=== PATIENT | male | born 1960 | race Caucasian/White ===

== ENCOUNTER 2017-05-10 09:18 | Day surgery (SDC) | payer MEDICARE ==
[~2017-05-10 09:18] MED LIST: ASPI-1197 PEG; CETI10TA57 PO; FAMO20TA8 PEG; PRAV40TA3 PEG; QUET50TA55 PEG; RIVA20TA PEG; SODIUM CHLORIDE 0.9% 1000ML 1,000 ML IV ONE; TRAZ-147 PEG
[2017-05-10 10:00] VITALS: BP 114/82
[2017-05-10] MEDS ORDERED: PROPOFOL 10 MG/ML 20ML VIAL IV ONE (11:49)
[2017-05-10 12:05] VITALS: BP 97/63
== END 2017-05-10 13:14 | disposition home or self-care (01) ==
LOC: ENDO 09:18 → DAH 09:18 → ENDO 13:14
PROVIDERS: ATTEND Internal Medicine Gastroenterology
DX: K94.23 Gastrostomy malfunction (principal); K21.9 Gastro-esophageal reflux disease without esophagitis; I10 Essential (primary) hypertension; E78.5 Hyperlipidemia, unspecified; J44.9 Chronic obstructive pulmonary disease, unspecified; Z86.73 Personal history of transient ischemic attack (TIA), and cerebral infarction without residual deficits; G40.909 Epilepsy, unspecified, not intractable, without status epilepticus; F32.9 Major depressive disorder, single episode, unspecified; Z68.36 Body mass index [BMI] 36.0-36.9, adult; Z79.899 Other long term (current) drug therapy
CPT/HCPCS: 43246; 93005; A4606; J2704; J7030

== ENCOUNTER → 2018-01-23 | Outpatient (CLI) | payer MEDICARE ==
[~2018-01-23] MED LIST changes: -SODIUM CHLORIDE 0.9% 1000ML 1,000 ML IV ONE; -TRAZ-147 PEG; +TRAZ-187 PEG
== END | disposition home or self-care (01) ==
LOC: OIH 10:29
PROVIDERS: ATTEND Internal Medicine
DX: R05 Cough (principal); R07.9 Chest pain, unspecified; Z87.19 Personal history of other diseases of the digestive system
CPT/HCPCS: 71046

== ENCOUNTER 2019-03-05 08:57 | Observation (INO) | payer MEDICARE ==
[~2019-03-05] VITALS: Ht 175.3 cm; Wt 64.9 kg
[2019-03-05] MEDS ORDERED: IPRATROPIUM/ALBUTEROL SULFATE 3 ML SOLUTION IH ONE (09:29)
[2019-03-05 09:48] LABS: ABG BASE EXCESS 0.4 mmol/L (-2.0-3.0); ABG HCO3 24.2 mmol/L (21.0-28.0); ABG OXYGEN SATURATION 93.2 % (95.0-99.0); ABG PCO2 36 mmHg (35-48)
[2019-03-05] MEDS ORDERED: METHYLPREDNISOLONE SOD SUCC 125MG/2ML VIAL ONE (10:02)
[2019-03-05 10:07] LABS: BASOPHILS % (AUTO) 0.4 % (0.0-5.0); EOSINOPHILS % (AUTO) 0.6 % (0.0-8.0); LYMPHOCYTES % (AUTO) 12.9 % (21.0-51.0); MEAN CORPUSCULAR HEMOGLOBIN 29.1 pg (27.0-33.0); MEAN CORPUSCULAR HGB CONC 32.3 g/dL (32.0-36.0); MONOCYTES % (AUTO) 13.3 % (3.0-13.0); NEUTROPHILS % (AUTO) 72.6 % (40.0-77.0); PLATELET COUNT (AUTO) 149 K/uL (130-400); RED CELL DISTRIBUTION WIDTH 13.1 % (11.0-15.5); WHITE BLOOD COUNT (AUTO) 5.1 K/uL (4.8-10.8)
[2019-03-05 10:15] LABS: HEMATOCRIT 46.9 % (42-54); RED BLOOD CELL COUNT(AUTO) 5.22 MIL/uL (4.50-6.20)
[2019-03-05 10:21] LABS: POTASSIUM 3.5 mmol/L (3.5-5.1)
[2019-03-05 10:26] LABS: ALBUMIN 3.5 g/dL (3.5-5.0); BILIRUBIN,TOTAL 0.5 mg/dL (0.2-1.0); TOTAL PROTEIN, SERUM 7.5 g/dL (6.0-8.3)
[2019-03-05] MEDS ORDERED: ZOSYN 3.375GM+NS 50ML 50 ML IV ONE (10:31)
[2019-03-05 10:39] LABS: INR 1.29 (0.85-1.15); PARTIAL THROMBOPLASTIN TIME 39.2 SEC (26.3-35.5); PROTHROMBIN TIME 13.4 SEC (9.6-11.6)
[2019-03-05 10:52] LABS: B-TYPE NATRIURETIC PEPTIDE 9 pg/mL (0-100)
[2019-03-05] MEDS ORDERED: IOHEXOL-350 75 ML VIAL IV ONE ×2 (12:09→12:19)
[2019-03-05] MEDS: CEFTRIAXONE SODIUM 1 GM IVP SCH (13:14)
[2019-03-05] MEDS ORDERED: SODIUM CHLORIDE 0.9% 10 ML VIAL IVP SCH (13:15)
[2019-03-05] MEDS: AZITHROMYCIN 500MG+NS 250ML 250 ML IV SCH (13:15)
[2019-03-05] MEDS ORDERED: IPRATROPIUM/ALBUTEROL SULFATE 3 ML SOLUTION IH PRN (13:15)
[2019-03-05] MEDS ORDERED: ACETAMINOPHEN 325 MG TAB PO PRN ×2 (13:15)
[2019-03-05] MEDS ORDERED: ENOXAPARIN SODIUM 40 MG/0.4 ML SYRINGE SQ SCH (13:15)
[2019-03-05] MEDS ORDERED: AZITHROMYCIN 500MG+NS 250ML 250 ML IV ONE (14:57)
[2019-03-05] MEDS ORDERED: ENOXAPARIN SODIUM 40 MG/0.4 ML SYRINGE SQ ONE (14:57)
[2019-03-05] MEDS ORDERED: CEFTRIAXONE SODIUM 1 GM ONE (14:58)
--- NOTE | 2019-03-05 15:39 | NUR ---
ER ADMIT PATIENT RECEIVED FROM ER VIA STRETCHER IN STABLE CONDITION. FAMILY IS PRESENT IN ROOM. BOTH WERE ORIENTED TO ROOM AND USE OF CALL LIGHT. PATIENT IS AWAKE AND ALERT BUT IS UNABLE TO COMMUNICATE VERBALLY D/T A STROKE. IV IS PATENT WITH NO REDNESS OR SWELLING NOTED TO SITE. WILL CONTINUE TO MONITOR.
[2019-03-05 16:00] VITALS: BP 114/73
[2019-03-05] MEDS: IPRATROPIUM/ALBUTEROL SULFATE 3 ML SOLUTION IH SCH ×2 (19:08→23:29)
[2019-03-05 20:00] VITALS: BP 104/67
--- NOTE | 2019-03-05 21:00 | NUR ---
ASSESS SHIFT ASSESSMENT DONE, PLEASE REFER TO CHART. PT'S SPOUSE VERBALIZE THAT SHE HAD ALREADY GIVEN PT HIS FEEDING FOR THE NIGHT AND HIS NIGHT MEDS FROM HOME. KEPT RESTED AND COMFORTABLE, WITH HOB ELEVATED. CALL LIGHT WITHIN REACH. SPOUSE AT BEDSIDE. Addendum: 03/05/19 at 2137 by KILLIAN GALE RN RN Amended: Links added.
[2019-03-06] VITALS: BP 96/66
--- NOTE | 2019-03-06 01:54 | NUR ---
BATHE PCP IN TO GIVE PT A BED BATH. TOLERATING ACTIVITY WELL.
[2019-03-06 03:59] VITALS: BP 95/65
[2019-03-06 05:09] LABS: BASOPHILS % (AUTO) 0.1 % (0.0-5.0); EOSINOPHILS % (AUTO) 1.7 % (0.0-8.0); HEMATOCRIT 41.8 % (42-54); LYMPHOCYTES % (AUTO) 9.2 % (21.0-51.0); MEAN CORPUSCULAR HGB CONC 31.8 g/dL (32.0-36.0); MEAN CORPUSCULAR VOLUME 91.3 fL (79-99); MONOCYTES % (AUTO) 9.3 % (3.0-13.0); NEUTROPHILS % (AUTO) 79.6 % (40.0-77.0); PLATELET COUNT (AUTO) 147 K/uL (130-400); RED BLOOD CELL COUNT(AUTO) 4.58 MIL/uL (4.50-6.20); RED CELL DISTRIBUTION WIDTH 12.8 % (11.0-15.5)
[2019-03-06 05:49] LABS: ALBUMIN 2.9 g/dL (3.5-5.0); BILIRUBIN,TOTAL 0.3 mg/dL (0.2-1.0); CREATININE 1.1 mg/dL (0.5-1.5); POTASSIUM 3.9 mmol/L (3.5-5.1); TOTAL PROTEIN, SERUM 6.9 g/dL (6.0-8.3)
--- NOTE | 2019-03-06 06:45 | NUR ---
MD DR CHATMAN IN TO SEE PT. NEW ORDERS GIVEN, PLEASE REFER TO CPOE. FOR MORE CARE.
[2019-03-06] MEDS: IPRATROPIUM/ALBUTEROL SULFATE 3 ML SOLUTION IH SCH ×4 (06:49→23:48)
[2019-03-06 08:00] VITALS: BP 91/59
[2019-03-06] MEDS: CEFTRIAXONE SODIUM 1 GM IVP SCH (10:02)
[2019-03-06] MEDS: RIVAROXABAN 20 MG TABLET PEG SCH (10:02)
[2019-03-06] MEDS: FAMOTIDINE 20MG TAB 20 MG TAB PEG SCH ×2 (10:02→21:04)
[2019-03-06] MEDS: ASPIRIN 81MG TAB.CHEW PEG SCH (10:02)
[2019-03-06] MEDS: CETIRIZINE HCL 5 MG TABLET PO SCH (10:03)
[2019-03-06 11:32] VITALS: BP 85/63
[2019-03-06] MEDS: AZITHROMYCIN 500MG+NS 250ML 250 ML IV SCH (13:09)
--- NOTE | 2019-03-06 15:10 | NUR ---
RD Notification - Tube Feeding Notification Pt receiving Home Tube feedings, Jammie MENENDEZ, 4 cans per day. Current feedings do not meet nutritional energy requirements Recommend to increase Bolus feedings to 6 cans per day to provide nutritional energy and protein needs (1800kcals/80gm protein/1230mls free H2O). Recommended flushes: 60mls before and after each feeding (360mls). Possible feeding schedule: 0600 - 2 cans, 1200 - 2 cans, 1800 - 2 cans. Pt admitted for COPD Exacerbation, Hx of Craniotomym Bilateral carotid stents, PEG, Stroke, HTN. Pt monitored labs: BUN 19, BG 165, Alb 2.9. RD to continue to monitor. Please notify RD as additional nutrition concerns arise. Thank you. Addendum: 03/06/19 at [address] RD Amended: Links added.
[2019-03-06 16:00] VITALS: BP 85/60
--- NOTE | 2019-03-06 19:59 | NUR ---
BLOOD PRESSURE Dr. Taylor was made aware of patient's blood pressures; he is aware MAP is 70. Stated no new orders for now except for IV solumedrol.
[2019-03-06 20:00] VITALS: BP 99/64
[2019-03-06] MEDS ORDERED: QUETIAPINE FUMARATE 25 MG TAB PO SCH (21:00)
[2019-03-06] MEDS ORDERED: TRAZODONE HCL 100 MG TABLET PEG SCH (21:00)
[2019-03-06] MEDS ORDERED: SIMVASTATIN 20 MG TABLET PO SCH (21:00)
[2019-03-06] MEDS: METHYLPREDNISOLONE SOD SUCC 125MG/2ML VIAL IVP SCH (21:03)
--- NOTE | 2019-03-06 21:05 | NUR ---
MEDS SHIFT ASSESSMENT DONE, PLEASE REFER TO CHART. DUE MEDS ADMINISTERED VIA PEG TUBE, TOLERATED WELL. PT'S SPOUSE ALREADY HAD GIVEN FEEDING WITH WATER FLUSHES. KEPT PT'S HOB ELEVATED. PT'S SPOUSE AT BEDSIDE. WILL MONITOR PT. Addendum: 03/06/19 at 2356 by KILLIAN GALE RN RN Amended: Links added.
[2019-03-07] VITALS: BP 93/65
--- NOTE | 2019-03-07 02:00 | NUR ---
ROUNDS PT RESTING WELL, FAIRLY ASLEEP WITH RESPIRATIONS EVEN AND UNLABORED. NO NOTED DISTRESS. KEPT UNDISTURBED FOR NOW. FAMILY ASLEEP AT BEDSIDE.
[2019-03-07 04:00] VITALS: BP 95/60
--- NOTE | 2019-03-07 06:38 | NUR ---
MD DR CHATMAN IN TO MAKE ROUNDS. D/C ORDERS GIVEN. ENDORSED TO ELTON SERRATO NURSE.
[2019-03-07] MEDS: IPRATROPIUM/ALBUTEROL SULFATE 3 ML SOLUTION IH SCH (06:45)
[2019-03-07 08:00] VITALS: BP 108/80
[2019-03-07] MEDS: CEFTRIAXONE SODIUM 1 GM IVP SCH (08:50)
[2019-03-07] MEDS: RIVAROXABAN 20 MG TABLET PEG SCH (08:51)
[2019-03-07] MEDS: CETIRIZINE HCL 5 MG TABLET PO SCH (08:51)
[2019-03-07] MEDS: ASPIRIN 81MG TAB.CHEW PEG SCH (08:51)
[2019-03-07] MEDS: METHYLPREDNISOLONE SOD SUCC 125MG/2ML VIAL IVP SCH (08:51)
[2019-03-07] MEDS: FAMOTIDINE 20MG TAB 20 MG TAB PEG SCH (08:51)
--- NOTE | 2019-03-07 09:50 | NUR ---
INSTRUCTIONS DISCHARGE INSTRUCTIONS GIVEN TO PATIENT AND SPOUSE USING TEACH BACK. NEW PRESCRIPTIONS HANDED TO SPOUSE. ALL PRINTED INFORMATION AND MD INSTRUCTIONS PLACED IN DISCHARGE PACKET. IV REMOVED WITH TIP INTACT. DIRECT PRESSURE APPLIED UNTIL BLEEDING CONTROLLED THEN SITE COVERED WITH GAUZE AND SECURED WITH TAPE. NO QUESTIONS OR CONCERNS VOICED. PENDING CASE MANAGEMENT FOR EMS TRANSPORT.
--- NOTE | 2019-03-07 10:24 | NUR ---
CM Note: EMS arranged and faxed CM faxed and arranged EMS transport for pt to home, primary nurse to call [facility]. Primary nurse aware. CM to cont to follow up.
== END 2019-03-07 12:05 | disposition home or self-care (01) ==
LOC: EDH 08:57 → EDHIP 11:53 → 3AH 15:39
PROVIDERS: ADMIT Internal Medicine; ATTEND Internal Medicine
DX: J44.1 Chronic obstructive pulmonary disease with (acute) exacerbation (principal); I69.359 Hemiplegia and hemiparesis following cerebral infarction affecting unspecified side; R47.01 Aphasia; R13.10 Dysphagia, unspecified; Z93.1 Gastrostomy status; Z99.3 Dependence on wheelchair; Z79.899 Other long term (current) drug therapy
CPT/HCPCS: 36415; 36600; 71045; 71275; 80053; 82550; 82803; 83880; 84484; 85025; 85610; 85730; 87040; 87071; 87077; 87186; 87205; 87804; 93005; 94640; 94664; 96365; 96375; 96376; 99291; G0378; J0456; J0696; J1650; J2543; J2930; Q9967

== ENCOUNTER → 2019-08-29 | Outpatient (CLI) | payer MEDICARE | END | disposition home or self-care (01) | LOC: OIH 09:07 | PROVIDERS: ATTEND Internal Medicine | DX: I70.0 Atherosclerosis of aorta (principal); R91.8 Other nonspecific abnormal finding of lung field; R05 Cough | CPT/HCPCS: 71046 ==

== ENCOUNTER 2022-04-29 13:07 | Emergency (ER) | payer MEDICARE ==
[~2022-04-29 13:07] MED LIST changes: +QUET50TA24 PEG; -QUET50TA55 PEG
[2022-04-29 14:11] VITALS: BP 121/73
== END 2022-04-29 14:52 | disposition home or self-care (01) ==
LOC: EDH 13:07
DX: K94.23 Gastrostomy malfunction (principal); Z79.82 Long term (current) use of aspirin; Y73.8 Miscellaneous gastroenterology and urology devices associated with adverse incidents, not elsewhere classified; Y92.89 Other specified places as the place of occurrence of the external cause
CPT/HCPCS: 43762; 74018

== ENCOUNTER 2023-04-28 08:56 | Day surgery (SDC) | payer MEDICARE ==
[~2023-04-28] VITALS: Ht 175.3 cm; Wt 68.5 kg
[2023-04-28] VITALS (11 sets, daily range): BP systolic 104–125; BP diastolic 61–78; PULSE 55–63; RESP 14–17
[~2023-04-28 08:56] MED LIST changes: +0.9%NACL 1000ML 1,000 ML IV ONE; +ALBU0.63 IH; +AZIT500T4 PO; -FAMO20TA8 PEG; +PANT40TA54 PO; +PRED20TA3 PO; -QUET50TA24 PEG; +QUET50TA24 PO; +VITAMIN D PO
[2023-04-28] MEDS ORDERED: PROPOFOL 10 MG/ML 20ML VIAL IV ONE (09:43)
== END 2023-04-28 11:20 | disposition home or self-care (01) ==
LOC: ENDO 08:56 → DAH 08:56 → ENDO 11:20
PROVIDERS: ATTEND Internal Medicine Gastroenterology
DX: Z93.1 Gastrostomy status (principal); K29.70 Gastritis, unspecified, without bleeding; K22.89 Other specified disease of esophagus; K44.9 Diaphragmatic hernia without obstruction or gangrene; I10 Essential (primary) hypertension; J44.9 Chronic obstructive pulmonary disease, unspecified; F41.9 Anxiety disorder, unspecified; F32.A Depression, unspecified; E11.9 Type 2 diabetes mellitus without complications; Z86.73 Personal history of transient ischemic attack (TIA), and cerebral infarction without residual deficits; Z82.49 Family history of ischemic heart disease and other diseases of the circulatory system; Z83.3 Family history of diabetes mellitus; Z82.3 Family history of stroke; Z87.891 Personal history of nicotine dependence; Z79.82 Long term (current) use of aspirin; Z79.4 Long term (current) use of insulin; Z79.51 Long term (current) use of inhaled steroids; Z79.899 Other long term (current) drug therapy; Z98.890 Other specified postprocedural states
CPT/HCPCS: 43246; J7030 ×2; J2704; A4620; A4215 ×2; A4223; A7002; A4222; A4221; A4663; A4606; J3490